=== PATIENT | male | born 1945 | race Caucasian/White ===

== ENCOUNTER → 2020-12-13 15:41 | Outpatient (BNVA) | payer MEDICARE, SELFPAY | PROVIDERS: Visit Provider Family Medicine | DX: N40.0 Benign prostatic hyperplasia without lower urinary tract symptoms (principal); K21.9 Gastro-esophageal reflux disease without esophagitis; T78.40XA Allergy, unspecified, initial encounter; I10 Essential (primary) hypertension; Z85.51 Personal history of malignant neoplasm of bladder; H93.8X9 Other specified disorders of ear, unspecified ear | CPT/HCPCS: 80053; 80061; 84153 ==

== ENCOUNTER 2021-01-04 06:00 | Outpatient (RCR) | payer MEDICARE, SELFPAY | END 2021-01-04 23:59 | disposition home or self-care (01) | LOC: MOT 06:00 | PROVIDERS: Referring Provider Family Medicine; Visit Provider Family Medicine | DX: M79.641 Pain in right hand (principal); M79.642 Pain in left hand | CPT/HCPCS: 97110; 97140; 97166 ==

== ENCOUNTER 2021-01-05 06:00 | Outpatient (RCR) | payer MEDICARE, SELFPAY | END 2021-02-03 23:59 | disposition home or self-care (01) | LOC: MOT 06:00 | PROVIDERS: Referring Provider Family Medicine; Visit Provider Family Medicine | DX: M79.641 Pain in right hand (principal); M79.642 Pain in left hand | CPT/HCPCS: 97018; 97110; 97140 ==

== ENCOUNTER → 2021-02-15 09:31 | Outpatient (BNVA) | payer MEDICARE, SELFPAY | PROVIDERS: PCP Family Medicine; Referring Provider Family Medicine; Visit Provider Urology | DX: C67.9 Malignant neoplasm of bladder, unspecified (principal); R97.20 Elevated prostate specific antigen [PSA]; Z85.51 Personal history of malignant neoplasm of bladder | CPT/HCPCS: 81003; 84153 ==

== ENCOUNTER → 2021-05-18 10:02 | Outpatient (BNVA) | payer MEDICARE, SELFPAY | PROVIDERS: PCP Family Medicine; Visit Provider Urology | DX: R97.20 Elevated prostate specific antigen [PSA] (principal); C67.9 Malignant neoplasm of bladder, unspecified | CPT/HCPCS: 81003; 84153 ==

== ENCOUNTER → 2021-10-12 10:50 | Outpatient (BNVA) | payer MEDICARE, SELFPAY | PROVIDERS: PCP Family Medicine; Visit Provider Urology | DX: C67.9 Malignant neoplasm of bladder, unspecified (principal); R97.20 Elevated prostate specific antigen [PSA]; N40.0 Benign prostatic hyperplasia without lower urinary tract symptoms | CPT/HCPCS: 81003; 84153 ==

== ENCOUNTER 2022-01-16 08:02 | Outpatient (CLI) | payer MEDICARE, SELFPAY | END 2022-01-16 08:03 | disposition home or self-care (01) | LOC: LAB 08:04 | PROVIDERS: PCP Family Medicine; Visit Provider Urology | DX: R97.20 Elevated prostate specific antigen [PSA] (principal) | CPT/HCPCS: 81003; 84153 ==

== ENCOUNTER → 2022-01-23 10:23 | Outpatient (BNVA) | payer MEDICARE, SELFPAY | PROVIDERS: PCP Family Medicine; Visit Provider Family Medicine | DX: N40.0 Benign prostatic hyperplasia without lower urinary tract symptoms (principal); K21.9 Gastro-esophageal reflux disease without esophagitis; I10 Essential (primary) hypertension; Z13.1 Encounter for screening for diabetes mellitus; Z13.220 Encounter for screening for lipoid disorders; Z13.6 Encounter for screening for cardiovascular disorders; M19.021 Primary osteoarthritis, right elbow; N40.1 Benign prostatic hyperplasia with lower urinary tract symptoms; K21.00 Gastro-esophageal reflux disease with esophagitis, without bleeding | CPT/HCPCS: 80053; 80061 ==

== ENCOUNTER → 2022-03-08 09:13 | Outpatient (BNVA) | payer MEDICARE, SELFPAY | PROVIDERS: PCP Family Medicine; Visit Provider Emergency Medicine | DX: M41.9 Scoliosis, unspecified (principal); M54.50 Low back pain, unspecified | CPT/HCPCS: 72020; 72114 ==

== ENCOUNTER → 2022-03-13 08:11 | Outpatient (BNVA) | payer MEDICARE, SELFPAY | PROVIDERS: PCP Family Medicine; Referring Provider Emergency Medicine; Visit Provider Orthopaedic Surgery | DX: M54.50 Low back pain, unspecified (principal) | CPT/HCPCS: 73523; 99203; 99204 ==

== ENCOUNTER 2022-03-22 06:00 | Outpatient (RCR) | payer MEDICARE, SELFPAY | END 2022-04-05 23:59 | disposition home or self-care (01) | LOC: MPT 06:00 | PROVIDERS: PCP Family Medicine; Referring Provider Emergency Medicine; Visit Provider Emergency Medicine | DX: M41.84 Other forms of scoliosis, thoracic region (principal) | CPT/HCPCS: 97110; 97162 ==

== ENCOUNTER → 2022-03-29 08:11 | Outpatient (BNVA) | payer MEDICARE, SELFPAY | PROVIDERS: PCP Family Medicine; Visit Provider Anesthesiology Pain Medicine | DX: M41.84 Other forms of scoliosis, thoracic region (principal); M47.816 Spondylosis without myelopathy or radiculopathy, lumbar region; M16.0 Bilateral primary osteoarthritis of hip; M79.604 Pain in right leg; M79.605 Pain in left leg; Z87.891 Personal history of nicotine dependence | CPT/HCPCS: 99204 ==

== ENCOUNTER 2022-04-24 10:41 | Outpatient (CLI) | payer MEDICARE, SELFPAY ==
--- NOTE | 2022-04-24 11:00 | MR_ITS ---
WS: [id number] MRI LUMBAR SPINE NONCONTRAST HISTORY: pain COMPARISON: None available. TECHNIQUE: Sagittal and axial multisequence imaging is submitted. Thoracolumbar scoliosis. Moderate dextroscoliosis thoracic spine. Mild straightening of the normal lumbar lordosis. There is a very small amount of marrow edema within the anterior L2 vertebral body. No fracture. Disc space narrowing is significant L5-S1. Otherwise moderate throughout the lumbar spine. Conus terminates normally at L1-2 disc level. L1-L2: Mild annular disc bulging and facet arthritis. RIGHT facet joint arthritis extends into the RI GHT lateral thecal sac. Mild central and foraminal stenosis. L2-L3: Diffuse annular disc bulging and osteophytic ridging and facet arthritis. Mild central with bi lateral subarticular recess and foraminal stenosis. L3-L4: Diffuse annular disc bulging and osteophytic ridging with facet joint arthritis. Facet joint a rthritis encroaching into the thecal sac greatest on the LEFT. LEFT foraminal disc protrusion. L4-L5: Diffuse annular disc bulging and osteophytic ridging and moderate facet arthritis. Small centr al disc protrusion. Mild central, bilateral subarticular recess and foraminal stenosis. Slightly grea ter narrowing and encroachment upon the RIGHT traversing L5 nerve root. L5-S1: Osteophytic ridging encroaches upon the ventral thecal sac. Osteophytes extend into the forami na bilaterally only causing mild foraminal stenosis. No contact on the S1 nerve roots by the osteophy te. Paravertebral soft tissues are unremarkable. MR/MR lumbar spine wo con* [id number] IMPRESSION: 1. Moderate diffuse spondylitic changes throughout the lumbar spine. No severe central or foraminal stenosis. 2. Mild central, bilateral subarticular recess and foraminal stenosis at L4-5. Slightly greater encroachment upon the traversing RIGHT L5 nerve root. 3. LEFT foraminal disc protrusion at L3-4. 4. Mild central and bilateral foraminal stenosis at L1-2 and L2-3 with additio nal bilateral subarticular recess stenosis at L2-3. 5. Mild foraminal stenosis at L5-S1.
== END 2022-04-24 10:42 | disposition home or self-care (01) ==
PROVIDERS: PCP Family Medicine; Visit Provider Orthopaedic Surgery
DX: M48.07 Spinal stenosis, lumbosacral region (principal); M48.061 Spinal stenosis, lumbar region without neurogenic claudication; M51.26 Other intervertebral disc displacement, lumbar region
CPT/HCPCS: 72148

== ENCOUNTER → 2022-05-07 12:48 | Outpatient (BNVA) | payer MEDICARE, SELFPAY | PROVIDERS: PCP Family Medicine; Visit Provider Anesthesiology Pain Medicine | DX: Z87.891 Personal history of nicotine dependence (principal); M47.816 Spondylosis without myelopathy or radiculopathy, lumbar region | CPT/HCPCS: 64493; 64494; 64495; J3490 ==

== ENCOUNTER → 2022-05-21 12:55 | Outpatient (BNVA) | payer MEDICARE, SELFPAY | PROVIDERS: PCP Family Medicine; Visit Provider Anesthesiology Pain Medicine | DX: Z87.891 Personal history of nicotine dependence (principal); M47.816 Spondylosis without myelopathy or radiculopathy, lumbar region | CPT/HCPCS: 64493; 64494; 64495; J3490 ==

== ENCOUNTER → 2022-05-30 09:46 | Outpatient (BNVA) | payer MEDICARE, SELFPAY | PROVIDERS: PCP Family Medicine; Visit Provider Family Medicine | DX: M25.521 Pain in right elbow (principal); M19.021 Primary osteoarthritis, right elbow | CPT/HCPCS: 73080 ==

== ENCOUNTER → 2022-06-04 10:44 | Outpatient (BNVA) | payer MEDICARE, SELFPAY | PROVIDERS: PCP Family Medicine; Visit Provider Anesthesiology Pain Medicine | DX: M16.0 Bilateral primary osteoarthritis of hip (principal); Z87.891 Personal history of nicotine dependence; M41.84 Other forms of scoliosis, thoracic region; M47.816 Spondylosis without myelopathy or radiculopathy, lumbar region | CPT/HCPCS: 99214 ==

== ENCOUNTER → 2022-06-05 13:54 | Outpatient (BNVA) | payer MEDICARE, SELFPAY | PROVIDERS: PCP Family Medicine; Visit Provider Nurse Practitioner Family | DX: M25.521 Pain in right elbow (principal) | CPT/HCPCS: 99213; 99214 ==

== ENCOUNTER → 2022-06-21 13:24 | Outpatient (BNVA) | payer MEDICARE, SELFPAY | PROVIDERS: PCP Family Medicine; Visit Provider Anesthesiology Pain Medicine | DX: M47.816 Spondylosis without myelopathy or radiculopathy, lumbar region (principal); Z87.891 Personal history of nicotine dependence | CPT/HCPCS: 64635; 64636; J1030 ==

== ENCOUNTER 2022-07-16 12:15 | Outpatient (CLI) | payer MEDICARE, SELFPAY ==
[2022-07-16 13:24] LABS: Prostate Specific AG Urology 11.86 ng/mL (0-4)
== END 2022-07-16 12:16 | disposition home or self-care (01) ==
LOC: LAB 12:18
PROVIDERS: PCP Family Medicine; Visit Provider Urology
DX: R97.20 Elevated prostate specific antigen [PSA] (principal); N40.1 Benign prostatic hyperplasia with lower urinary tract symptoms; C67.9 Malignant neoplasm of bladder, unspecified
CPT/HCPCS: 36415; 81003; 84153; 99213

== ENCOUNTER → 2022-07-27 11:12 | Outpatient (BNVA) | payer MEDICARE, SELFPAY | PROVIDERS: PCP Family Medicine; Visit Provider Emergency Medicine | DX: R68.89 Other general symptoms and signs (principal); R11.0 Nausea; U07.1 COVID-19 | CPT/HCPCS: 87400; 87426 ==

== ENCOUNTER → 2022-08-06 13:41 | Outpatient (BNVA) | payer MEDICARE, SELFPAY | PROVIDERS: PCP Family Medicine; Visit Provider Anesthesiology Pain Medicine | DX: M47.816 Spondylosis without myelopathy or radiculopathy, lumbar region (principal); Z87.891 Personal history of nicotine dependence | CPT/HCPCS: 64635; 64636; J1030 ==

== ENCOUNTER → 2022-08-21 09:51 | Outpatient (BNVA) | payer MEDICARE, SELFPAY | PROVIDERS: PCP Family Medicine; Visit Provider Anesthesiology Pain Medicine | DX: Z87.891 Personal history of nicotine dependence (principal); M54.9 Dorsalgia, unspecified | CPT/HCPCS: 99212 ==

== ENCOUNTER 2022-11-08 10:52 | Outpatient (CLI) | payer MEDICARE, SELFPAY ==
[2022-11-08 11:50] LABS: Prostate Specific AG Urology 10.96 ng/mL (0-4)
== END 2022-11-08 10:53 | disposition home or self-care (01) ==
LOC: LAB 10:58
PROVIDERS: PCP Family Medicine; Visit Provider Urology
DX: R97.20 Elevated prostate specific antigen [PSA] (principal)
CPT/HCPCS: 36415; 84153

== ENCOUNTER 2022-11-20 12:29 | Outpatient (CLI) | payer MEDICARE, SELFPAY ==
[2022-11-20 13:49] LABS: Alanine Aminotransferase 21 U/L (0-41); Albumin Level 4.2 g/dL (3.5-5.2); Alkaline Phosphatase 76 U/L (40-130); Anion Gap 11.7 (5-19); Aspartate Amino Transferase 19 U/L (0-40); Blood Urea Nitrogen 13 mg/dL (8-23); Carbon Dioxide 30 mmol/L (22-29); Chloride 105 mmol/L (98-107); Chol HDL Ratio 3.05 mg/dL (1.0-5.00); Cholesterol 171 mg/dL (0-200); Globulin 2.1 g/dL (1.3-4.6); Glucose 100 mg/dL (65-115); HDL Cholesterol 56 mg/dL (60-100); LDL Cholesterol Calculated 99 mg/dL (50-129); LDL HDL Ratio 1.77 RATIO (0.00-3.22); Osmolality Calculated 294 mOsm/kg (285-295); Potassium 4.7 mmol/L (3.5-5.1); Sodium 142 mmol/L (136-145); Total Bilirubin 0.5 mg/dL (0.15-1.2); Total Protein 6.3 g/dL (6.6-8.7); Triglycerides 78 mg/dL (0-150)
== END 2022-11-20 12:30 | disposition home or self-care (01) ==
LOC: LAB 12:36
PROVIDERS: PCP Family Medicine; Visit Provider Family Medicine
DX: Z13.1 Encounter for screening for diabetes mellitus (principal); Z13.220 Encounter for screening for lipoid disorders; I10 Essential (primary) hypertension; Z13.6 Encounter for screening for cardiovascular disorders; C67.9 Malignant neoplasm of bladder, unspecified; R97.20 Elevated prostate specific antigen [PSA]; N40.1 Benign prostatic hyperplasia with lower urinary tract symptoms
CPT/HCPCS: 36415; 52000; 80053; 80061; 99213

== ENCOUNTER → 2022-12-24 13:24 | Outpatient (BNVA) | payer MEDICARE, SELFPAY | PROVIDERS: PCP Family Medicine; Visit Provider Nurse Practitioner Family | DX: R30.0 Dysuria (principal) | CPT/HCPCS: 81000; 87086 ==

== ENCOUNTER → 2023-08-28 10:17 | Outpatient (BNVA) | payer MEDICARE, SELFPAY | PROVIDERS: PCP Family Medicine; Visit Provider Family Medicine | DX: M25.562 Pain in left knee (principal) | CPT/HCPCS: 73562 ==

== ENCOUNTER → 2023-09-04 09:03 | Outpatient (BNVA) | payer MEDICARE, SELFPAY | PROVIDERS: PCP Family Medicine; Referring Provider Family Medicine; Visit Provider Nurse Practitioner | DX: M17.12 Unilateral primary osteoarthritis, left knee; Z46.89 Encounter for fitting and adjustment of other specified devices; M25.562 Pain in left knee | CPT/HCPCS: 20610; 73560; 73565; 97760; 99204; J1100; J2795; J3301; L1812 ==

== ENCOUNTER 2023-09-04 10:45 | Outpatient (CLI) | payer MEDICARE, SELFPAY | END 2023-09-04 10:46 | disposition home or self-care (01) | LOC: SPT 10:46 | PROVIDERS: PCP Family Medicine; Visit Provider Nurse Practitioner | DX: Z46.89 Encounter for fitting and adjustment of other specified devices (principal); M25.562 Pain in left knee; M17.12 Unilateral primary osteoarthritis, left knee | CPT/HCPCS: 20610; 97760; 99204; J1100; J2795; J3301; L1812 ==

== ENCOUNTER → 2023-10-16 13:31 | Outpatient (BNVA) | payer MEDICARE, SELFPAY | PROVIDERS: PCP Family Medicine; Visit Provider Nurse Practitioner | DX: M17.12 Unilateral primary osteoarthritis, left knee (principal) | CPT/HCPCS: 99213 ==

== ENCOUNTER → 2024-01-28 13:19 | Outpatient (BNVA) | payer MEDICARE, SELFPAY | PROVIDERS: PCP Family Medicine; Visit Provider Nurse Practitioner Family | DX: U07.1 COVID-19 (principal); J06.9 Acute upper respiratory infection, unspecified | CPT/HCPCS: 87426 ==

== ENCOUNTER → 2024-02-17 09:36 | Outpatient (BNVA) | payer MEDICARE, SELFPAY | PROVIDERS: PCP Family Medicine; Visit Provider Family Medicine | DX: K21.9 Gastro-esophageal reflux disease without esophagitis (principal); I10 Essential (primary) hypertension; R97.20 Elevated prostate specific antigen [PSA]; N40.1 Benign prostatic hyperplasia with lower urinary tract symptoms; K21.00 Gastro-esophageal reflux disease with esophagitis, without bleeding; Z13.220 Encounter for screening for lipoid disorders; Z13.6 Encounter for screening for cardiovascular disorders | CPT/HCPCS: 80053; 80061; 84153 ==

== ENCOUNTER → 2024-10-19 10:02 | Outpatient (BNVA) | payer MEDICARE, SELFPAY | PROVIDERS: PCP Family Medicine; Visit Provider Family Medicine | DX: I10 Essential (primary) hypertension; N40.1 Benign prostatic hyperplasia with lower urinary tract symptoms | CPT/HCPCS: 80053; 81000 ==

== ENCOUNTER → 2025-04-02 08:58 | Outpatient (BNVA) | payer MEDICARE, SELFPAY | PROVIDERS: PCP Family Medicine; Visit Provider Physician Assistant | DX: G56.03 Carpal tunnel syndrome, bilateral upper limbs (principal); G56.22 Lesion of ulnar nerve, left upper limb | CPT/HCPCS: 73130; 99203 ==

== ENCOUNTER → 2025-04-19 13:43 | Outpatient (BNVA) | payer MEDICARE, SELFPAY | PROVIDERS: PCP Family Medicine; Visit Provider Family Medicine | DX: I10 Essential (primary) hypertension (principal) | CPT/HCPCS: 80053; 80061 ==

== ENCOUNTER → 2025-05-04 12:55 | Outpatient (BNVA) | payer MEDICARE, SELFPAY | PROVIDERS: PCP Family Medicine; Referring Provider Family Medicine; Visit Provider Specialist | DX: G56.23 Lesion of ulnar nerve, bilateral upper limbs (principal); G56.03 Carpal tunnel syndrome, bilateral upper limbs | CPT/HCPCS: 95911 ==

== ENCOUNTER → 2025-05-21 12:23 | Outpatient (BNVA) | payer MEDICARE, SELFPAY | PROVIDERS: PCP Family Medicine; Visit Provider Physician Assistant | DX: G56.03 Carpal tunnel syndrome, bilateral upper limbs (principal); G56.22 Lesion of ulnar nerve, left upper limb | CPT/HCPCS: 99214 ==

== ENCOUNTER 2025-07-19 07:42 | Day surgery (SDC) | payer MEDICARE, SELFPAY ==
[2025-07-19] VITALS (15 sets, daily range): BP systolic 136–196; BP diastolic 66–95; PULSE 53–64; RESP 10–21; TEMP 36.1–36.3; O2SAT 93–100; BMI 29.0
[2025-07-19] MEDS: acetaminophen 1,000 MG/100 ML PIGGYBACK 400 MG IV (08:27)
--- NOTE | 2025-07-19 09:04 | PC.NURSE ---
AXILLARY NERVE BLOCK PERFORMED BY ANESTHESIOLOGIST USING 20ML 0.5% ROPIVACAINE. VS MONITORED. PT TOLERATED WELL.
--- NOTE | 2025-07-19 09:12 | ANES.PREANE2 ---
Pre-Anesthetic Assessment Height/Weight: Height 1.85 m Weight 99.79 kg Temp Pulse Resp BP Pulse Ox O2 Del Method 97.4 F L 59 L 15 155/70 97 Room Air 07/19/25 08:06 07/19/25 09:03 07/19/25 09:03 07/19/25 09:03 07/19/25 09:03 07/19/25 09:03 Operation Date: 07/19/25 09:40 Proposed Procedures p LEFT and RIGHT Carpal Tunnel Release(Bilateral) - Mike Cherri, DO s LEFT Cubital Tunnel Release(Left) - Mike Cherri, DO s POSSIBLE Ulnar Nerve Transposition(Left) - Mike Cherri, DO Familial anesthetic complications: none Was Beta Meghan taken within 24 hours: N/A Was Clonidine taken within 24 hours: N/A Last intake: Intake Last Liquid Date 07/18/25 Last Liquid Time 17:30 Last Solid Date 07/18/25 Last Solid Time 17:30 Social No alcohol and No tobacco Exam alert, oriented x 3, clear to auscultation bilaterally and regular rate & rhythm Airway Mallampati: Class II Dentition: false CV/HEM Hypertension GI Gastroesophageal Reflux Disease Anesthetic Plan ASA status: 3 Anesthesia: General and Regional (specify below) Risk of > 500 ml blood loss (7ml/kg in children): No Medications/Allergies Home Medications ?Medication ?Instructions ?Recorded ?Confirmed ?Last Taken ?Type docusate sodium 100 mg capsule 100 mg PO DAILY 05/18/21 07/19/25 Unknown History (Stool Softener) finasteride 5 mg tablet 5 mg PO DAILY 90 days #90 tabs 10/19/24 07/19/25 07/18/25 21:00 Rx lisinopril 20 mg tablet 20 mg PO DAILY 90 days #90 tabs 10/19/24 07/19/25 07/18/25 21:00 Rx omeprazole 40 mg capsule,delayed 40 mg PO DAILY 07/15/25 07/19/25 07/18/25 21:00 History release tamsulosin 0.4 mg capsule 0.4 mg PO DAILY 07/15/25 07/19/25 07/18/25 21:00 History Allergies Allergy/AdvReac Type Severity Reaction Status Date / Time Sulfa (Sulfonamide Allergy unknown Verified 07/19/25 08:03 Antibiotics) Current Medications Generic Name Dose Route Start Last Admin Trade Name Freq PRN Reason Stop Dose Admin Sodium Chloride 1,000 mls @ 30 mls/hr 07/19/25 08:00 07/19/25 08:28 Sodium Chloride 0.9% IV 07/20/25 07:59 30 mls/hr .Q24H TU Administration PFSH Anesthesia Medical History Primary osteoarthritis of left knee Fall Acute pain of left knee COVID-19 Dextroscoliosis of thoracic spine Levoscoliosis of thoracic spine Multiple skin nodules Scoliosis BPH loc w urin obs/LUTS Elevated PSA Bladder cancer Low grade and reportedly noninvasive TCCA diagnosed in 2010 with 1 very small recurrence in 2013 and multiple surveillance cystoscopies after that with no recurrence. On annual surveillance when first evaluated [facility] February 2021 Hypertension HCTZ caused dizziness GERD (gastroesophageal reflux disease) Enlarged prostate Allergies Surgical History Hx of transurethral destruction of bladder lesion History of total right knee replacement History of appendectomy History of tonsillectomy and adenoidectomy Social History Smoking and tobacco/nicotine status: tobacco/nicotine user, details unknown Quit status (tobacco/nicotine): has quit using Year quit tobacco: 1980 Alcohol intake: current Alcohol intake frequency: 0-2 Drinks per Day Substance/Drug Use: never Household members: spouse Marital status: Current occupational status: retired Anesthesia Procedures Nerve Block Nerve Block 1: Main Anesthesia: general anesthesia Time Out Performed: Yes Consent: requested by attending/covering physician, from patient, from other, risks and benefits reviewed and patient agrees to proceed Nerve block location: axillary (R) Anesthesia monitors applied: pulse oximetry, EKG, BP cuff and oxygen Nerve block position: supine Anesthetic Used: ropivicaine 0.5% (20 ml) Ultrasound used to: recognize landmarks and visualize and ID brachial plexus Nerve Stimulator Used?: No Interscalene/Femoral BLK: 2 stimuplex 22 g needle used for position and inplane approach, visualize local anesthetic spread and no vascular puncture identified Injection: neg aspiration of heme Patient Tolerated Procedure: well Complications: none
--- NOTE | 2025-07-19 09:47 | W.PM.OPSFHP ---
Same Day Surgery H&P Indication for Procedure/HPI DATE OF PROCEDURE: July 19, 2025 CHIEF COMPLAINT/INDICATIONFOR SURGICAL PROCEDURE: Right carpal tunnel syndrome, left carpal tunnel syndrome, left cubital tunnel syndrome PREOP DIAGNOSIS: Right carpal tunnel syndrome, left carpal tunnel syndrome, left cubital chris PLANNED PROCEDURE: Operation Date: 07/19/25 09:40 Proposed Procedures p LEFT and RIGHT Carpal Tunnel Release(Bilateral) - Mike Cherri, DO s LEFT Cubital Tunnel Release(Left) - Mike Saezatt, DO s POSSIBLE Ulnar Nerve Transposition(Left) - Mike Lamar, DO Medications/Allergies* Home Medications ?Medication ?Instructions ?Recorded ?Confirmed ?Type docusate sodium 100 mg capsule 100 mg PO DAILY 05/18/21 07/19/25 History (Stool Softener) omeprazole 40 mg capsule,delayed 40 mg PO DAILY 07/15/25 07/19/25 History release tamsulosin 0.4 mg capsule 0.4 mg PO DAILY 07/15/25 07/19/25 History Allergies/Adverse Reactions Allergy/AdvReac Type Severity Reaction Status Date / Time Sulfa (Sulfonamide Allergy unknown Verified 07/19/25 08:03 Antibiotics) Current Medications: Generic Name Dose Route Start Last Admin Trade Name Freq PRN Reason Stop Dose Admin Sodium Chloride 1,000 mls @ 30 mls/hr 07/19/25 08:00 07/19/25 08:28 Sodium Chloride 0.9% IV 07/20/25 07:59 30 mls/hr .Q24H TU Administration Pertinent History/Comorbid Conditions* Medical History (Updated 05/21/25 @ 13:11 by BETZAIDA Brown) Primary osteoarthritis of left knee Fall Acute pain of left knee COVID-19 Dextroscoliosis of thoracic spine Levoscoliosis of thoracic spine Multiple skin nodules Scoliosis BPH loc w urin obs/LUTS Elevated PSA Bladder cancer Low grade and reportedly noninvasive TCCA diagnosed in 2010 with 1 very small recurrence in 2013 and multiple surveillance cystoscopies after that with no recurrence. On annual surveillance when first evaluated [facility] February 2021 Hypertension HCTZ caused dizziness GERD (gastroesophageal reflux disease) Enlarged prostate Allergies Surgical History (Updated 02/15/21 @ 11:09 by Duong Benavides MD) Hx of transurethral destruction of bladder lesion History of total right knee replacement History of appendectomy History of tonsillectomy and adenoidectomy Social History Smoking and tobacco/nicotine status: tobacco/nicotine user, details unknown Quit status (tobacco/nicotine): has quit using Year quit tobacco: 1980 Alcohol intake: current Alcohol intake frequency: 0-2 Drinks per Day Substance/Drug Use: never Household members: spouse Marital status: Current occupational status: retired Pertinent Exam Findings alert, oriented x 3, operative site marked and procedure specific exam findings Please refer to detailed orthopedic examination on 05/21/2025 listed below: Left hand exam-positive Tinel's and positive Phalen's test. thenar atrophy and thenar muscle weakness. Full range of motion in fingers and wrist and fingers are warm and well-perfused with normal cap refill under 2 seconds. Radial pulse 2+, mild intrinsic muscle weakness noted. left Elbow exam-positive Tinel's test and positive elbow flexion test. Right hand positive Tinel's positive Phalen's test. Some thenar atrophy and thenar muscle weakness noted. Full range of motion fingers and wrist are warm and well-perfused with normal cap refill under 2 seconds. Radial pulse 2+. Some mild intrinsic muscle weakness noted Recommendations Risks and benefits of procedure reviewed and Patient/family agree to proceed Surgery/Procedure today Other Plans: Plan to proceed to the OR today for right carpal tunnel release, left carpal tunnel release and left cubital tunnel release with possible nerve transposition. Patient understands incidence procedure versus benefits complication alternatives of surgical nonsurgical treatment options. Understanding risk of surgery patient elects proceed with surgical invention. All questions answered at this time. We did have a long thoughtful discussion about the postoperative recovery process he does understand that given the severity of his disease he may not obtain full nerve recovery but at this point time wishes to proceed with goals of hopefully nerve preservation. Patient understands and agrees with current plan. Questions answered. Coding Level of Care Code Acute Code for Chg Fwd
[2025-07-19] MEDS: ceFAZolin 2,000 MG in sodium chloride 0.9% (plus) 50 ML 100 MG IV (10:04)
[2025-07-19] MEDS: ROPivacaine 0.5% SDV 30 mL 150 MG INJECTION (10:58)
[2025-07-19] MEDS: lidocaine-epi 1% 20 mL INJ INJECTION (10:59)
--- NOTE | 2025-07-19 11:41 | W.PM.BPON ---
Date of Procedure: [July 19, 2024] Surgeon: [Dr. Cherri DO] Impregnating Machine Operator(s): [Harvey Harley PA-C] Procedure(s) performed: [Right carpal tunnel release Left carpal tunnel release Left cubital tunnel release] Findings of the procedure(s): [Right carpal tunnel syndrome and left carpal tunnel syndrome left cubital tunnel syndrome. No ulnar nerve subluxation after release so no need for transposition of the nerve. Procedure went well and is planned] Estimated blood loss: [10 mL] Specimen(s) removed: [N/A] Post-operative diagnosis: [Right carpal tunnel syndrome and left carpal tunnel syndrome left cubital tunnel syndrome.]
--- NOTE | 2025-07-19 11:43 | PM.PACU ---
PACU note Narrative: Patient is a 80-year-old male that just underwent a right carpal tunnel release left cubital tunnel release and left carpal tunnel release. Patient transferred to PACU in stable condition. Pain is well controlled. Dressing on hand is dry and in place. Patient's fingers are warm and well-perfused. Patient can wiggle fingers. normal cap refill under 2 seconds. Patient has normal elbow range of motion. Unable to assess sensation due to residual localized anesthetic. Exam: awake Disposition: discharged
--- NOTE | 2025-07-19 11:45 | PM.OP ---
Operative Report Date of procedure: July 19, 2025 Surgeon: Mike Harley DO Procedure: Preoperative diagnosis: Bilateral carpal tunnel syndrome Left cubital tunnel syndrome postop Diagnosis: Same Procedure done: Right carpal tunnel release Left carpal tunnel release Left?cubital tunnel tunnel release (ulnar nerve decompression at elbow) Surgeon: Mike Harley DO Estimated blood loss: 10 mL Tourniquet? 6 minutes-right 18 minutes- left IV fluids: 500 mL Complications: None Findings: See operative report narrative Condition: stable Disposition: same day Brief History: Patient's been seen and worked up in the outpatient setting and findings consistent with preoperative diagnosis.? Patient has right carpal tunnel syndrome, left carpal tunnel syndrome as well as Left?cubital tunnel syndrome which has been worked up in the outpatient setting has physical exam findings consistent with this as well as confirmatory nerve conduction/EMG nerve conduction study consistent with diagnosis.? Patient's failed conservative treatment.? As result through shared decision making agreed to proceed with right carpal tunnel release and left carpal tunnel release and Left?cubital tunnel release with possible nerve transposition we talked about treatment options as far as nonoperative and operative intervention.? Understands risk benefits complication alternatives surgical nonsurgical treatment options.? Understanding his risks he agrees to proceed with surgical intervention. Understanding these risks he agrees to proceed with surgery.? Consent obtained in preoperative holding area. Procedure: Patient seen evaluate in the preoperative holding area.? Consent was reviewed and signed with patient.? Correct extremity marked.? Patient seen evaluated by anesthesia department once cleared for surgery was then taken back to the operative suite placed in supine position all bony prominences well-padded patient properly secured to bed. Started with the right side procedure. An armboard was applied to the right upper extremity. Nonsterile tourniquet applied to the right upper arm. Patient was then underwent anesthesia. MAC department was appropriate anesthetized patient's right upper extremities prepped and draped in standard orthopedic fashion. Final timeout performed. Patient received appropriate preoperative antibiotics. Under sterile aseptic technique patient received local anesthesia over the preplanned?carpal?tunnel?incision site. Esmarch was used to exsanguinate the Right upper extremity and tourniquet was insufflated to 250 mmHg. A standard mini?open Right?carpal?tunnel?incision was made.? Starting distally at Graham's cardinal line in line with the fourth ray extending proximally distal to the wrist crease centered over the?carpal?tunnel.? Sharp scalpel incision was made through skin and subcutaneous tissue.? Self-retaining retractor was placed and the palmar fascia was identified.? This was then split longitudinally and direct visualization of the transverse?carpal?ligament was then made.? I then utilizing scalpel feathered through the transverse?carpal?ligament until I entered the floor of the transverse?carpal?tunnel?ligament into the?carpal?tunnel.? Next I switched to dissection scissors and completed my release of the transverse?carpal?ligament distally with care to protect the recurrent motor branch.? I completely released into the palmar fat and until no entrapment was noted distally.? Care was made to protect the superficial palmar arch during my distal dissection.?? Next I utilized a nasal speculum placed on top of the transverse?carpal?ligament and utilize this to retract the subcutaneous fat and tissue and under direct loupe magnification was able to identify the transverse?carpal?ligament.? Next I then placed a Chico underneath the transverse?carpal?tunnel?ligament to protect the contents of the?carpal?tunnel?and subsequently utilizing dissection scissors under loupe magnification completely released the transverse?carpal?ligament proximally into the median antebrachial fascia.? Care was made to protect the palmar cutaneous branch by keeping my scissors curved ulnarly.? Once completely released, I then placed my Chico and had appropriate decompression of the?carpal?tunnel?proximally as well as distally.? I then inspected the contents of the?carpal?tunnel?which showed an hourglass shape of the median nerve showing its compression.? No masses were noted.? Tendons appeared healthy.? Wound was then thoroughly irrigated.? Tourniquet deflated.? Hemostasis satisfactory with bipolar electrocautery.? I then closed the incision with interrupted nylon stitches.? Xeroform 4 x 4's and a bulky soft dressing was applied.? Once Kenji bandage and dressing was applied posterior blue drapes were removed for the right upper extremity and then at this point in time we proceeded with the left sided surgery. Left upper extremity placed onto armboard.? Nonsterile tourniquet applied Left upper arm.? Patient's Left upper extremity was then prepped and draped in standard orthopedic fashion.? A new final timeout performed.? As stated before patient received appropriate perioperative antibiotics. Esmarch was used exsanguinate the Left upper extremity.? Tourniquet was insufflated to 250 mmHg. I started with the carpal tunnel release first.? I made a standard open carpal tunnel release starting with the distal most extent in the palm at the Graham's cardinal line and the incision line was made in line with the fourth ray and ended just distal to the wrist crease.? Sharp scalpel incision was made through skin and subcutaneous tissue I then utilizing self retainer then began to dissect with dissection scissors split longitudinally the palmar fascia.? Next I then utilizing my staff physical therapy assistant Jorgedacolin retractors subsequently utilizing scalpel feathered through the palmaris brevis as well as through the transverse carpal ligament distally.? Once I encountered the floor of the transverse carpal ligament and entered into the carpal tunnel I then switched to dissection scissors.? Carefully released the distal extent of the transverse carpal ligament to the palmar fat.? Care was to protect the recurrent branch and not injured this during this part of the case.? Next I then placed a Chico underneath the transverse carpal ligament proximally to protect the nerve in the carpal tunnel contents.? And then I subsequently under loupe magnification utilize my dissection scissors to release the transverse carpal ligament into the antebrachial fascia under direct visualization with care to keep my scissors with a curved ulnarly away from the palmar cutaneous branch.? The transverse carpal was then completely decompressed proximally and a [place] was then placed both distally and proximally throughout the carpal tunnel and had complete decompression of the nerve.? The nerve did appear to have hourglass shape as it went through the carpal tunnel.? With significant irritation noted around the nerve.? No masses were noted within the contents of the carpal tunnel.? This completed the carpal tunnel release and then I subsequently irrigated the wound bed and placed a wet Ray-Oli into the incision for later closure. Next marked out the landmarks of the Left elbow of the medial epicondyle and olecranon and made a curvilinear incision following the course of the ulnar nerve at the medial aspect of the elbow.? Sharp scalpel incision was made through skin and subcutaneous tissue.? Next I switched to Littler dissection scissors and spread in plane of the medial antebrachial cutaneous nerve branching which was protected throughout this part of the dissection.? Then I directly came down over the fascia and identified the 2 heads of the FCU fascia and split this Left in the middle and subsequently identified my ulnar nerve distally.? This was then completely released distally under direct visualization and loupe magnification.? Once the nerve was then identified I then subsequently tracked this proximally and released this through Skinner's ligament as well as complete decompression of the nerve proximally all the way past the intermuscular septum.? The nerve was completely released and decompressed both proximally and distally.? Ulnar nerve neurolysis performed and completed both proximally and distally with dissection scissors.? I then took the elbow through range of motion and there was no instability or subluxating of the ulnar nerve.? This completed?cubital tunnel release.? ?Next the wound bed was thoroughly irrigated.? Tourniquet was deflated.? Hemostasis was satisfactory at the?cubital tunnel release surgery site. I then inspected the carpal tunnel incision and this was found to have satisfactory hemostasis and all this was maintained through bipolar electrocautery.? At this point time I sequentially closed?cubital tunnel site with 3-0 Vicryl suture in a running horizontal mattress nylon stitch.? ? The carpal tunnel release surgery was then closed in standard interrupted mattress fashion.? Dressing was Xeroform 4 x 4's ABD Curlex soft roll and an Kenji wrap has a bulky soft dressing. Patient was then awakened from anesthesia and taken to PACU in stable condition. Disposition: Patient taken to PACU in stable condition recovering well.? Patient will receive appropriate discharge instructions as well as pain medication postoperatively.? We will follow-up with me in the office in 2 weeks.? Patient understands agrees with current plan.? All questions answered.? He understands if any questions or concerns and contact the office for follow-up appointment.
[2025-07-19] MEDS: hyDRALAzine 20 mg/mL INJ 1 mL 5 MG IVP ×2 (12:43→13:03)
--- NOTE | 2025-07-19 13:40 | ANE.PACU2 ---
Inpatient post-anesthesia follow up: Airway intact: Yes Vital signs: Temperature 97.0 F Pulse Rate 62 Respiratory Rate 18 Blood Pressure 157/74 Pulse Oximetry 100 Oxygen Delivery Me thod Room Air Oxygen Flow Rate Fraction of Inspir ed Oxygen Hydration adequate: Yes Nausea and vomiting: No Pain level: 1 Mental status: Baseline
== END 2025-07-19 13:39 | disposition home or self-care (01) ==
PROVIDERS: PCP Family Medicine; Visit Provider Student in an Organized Health Care Education/Training Program
PROC: (CPT 64721; principal; 2025-07-19 09:30)
PROC: (CPT 64718; 2025-07-19 09:30)
DX: G56.22 Lesion of ulnar nerve, left upper limb (principal); G56.02 Carpal tunnel syndrome, left upper limb; K21.9 Gastro-esophageal reflux disease without esophagitis; Z85.51 Personal history of malignant neoplasm of bladder; I10 Essential (primary) hypertension; Z87.891 Personal history of nicotine dependence
CPT/HCPCS: 64718; 64721; J0131; J0360; J0690; J1100; J1885; J2405; J2704; J2795; J3010; J7030; J9999

== ENCOUNTER → 2025-08-04 13:56 | Outpatient (BNVA) | payer MEDICARE, SELFPAY | PROVIDERS: PCP Family Medicine; Visit Provider Student in an Organized Health Care Education/Training Program | DX: Z98.890 Other specified postprocedural states (principal) | CPT/HCPCS: 99024 ==

== ENCOUNTER 2025-08-09 12:43 | Outpatient (RCR) | payer MEDICARE, SELFPAY | END 2025-09-05 23:59 | disposition home or self-care (01) | LOC: SOT 12:43 | PROVIDERS: PCP Family Medicine; Visit Provider Student in an Organized Health Care Education/Training Program | DX: G56.03 Carpal tunnel syndrome, bilateral upper limbs (principal) | CPT/HCPCS: 97165 ==

== ENCOUNTER → 2025-08-18 14:33 | Outpatient (BNVA) | payer MEDICARE, SELFPAY | PROVIDERS: PCP Family Medicine; Visit Provider Physician Assistant | DX: Z98.890 Other specified postprocedural states (principal); T81.41XA Infection following a procedure, superficial incisional surgical site, initial encounter; Y83.8 Other surgical procedures as the cause of abnormal reaction of the patient, or of later complication, without mention of misadventure at the time of the procedure | CPT/HCPCS: 99024 ==

== ENCOUNTER → 2025-08-30 11:33 | Outpatient (BNVA) | payer MEDICARE, SELFPAY | PROVIDERS: PCP Family Medicine; Visit Provider Nurse Practitioner | DX: M79.641 Pain in right hand (principal); M19.041 Primary osteoarthritis, right hand | CPT/HCPCS: 73130 ==

== ENCOUNTER → 2025-09-01 08:46 | Outpatient (BNVA) | payer MEDICARE, SELFPAY | PROVIDERS: PCP Family Medicine; Visit Provider Physician Assistant | DX: Z98.890 Other specified postprocedural states (principal) | CPT/HCPCS: 99024 ==

== ENCOUNTER → 2025-09-15 09:42 | Outpatient (BNVA) | payer MEDICARE, SELFPAY | PROVIDERS: PCP Family Medicine; Visit Provider Physician Assistant | DX: Z98.890 Other specified postprocedural states (principal) | CPT/HCPCS: 99024 ==